=== PATIENT | male | born 1955 | race Caucasian/White ===

== ENCOUNTER 2016-04-27 11:52 | Emergency (ER) | payer OTHER ==
--- NOTE | 2016-04-27 13:17 | ED Physician Documentation ---
Chest Pain - HISTORIAN Historian: patient - HPI Stated Complaint: Left rib pain Chief Complaint: Chest Pain Additional Information: left mid axillary pain ribs, sudden onset yesterday, no trauma, no cough Onset: days ago (1) Timing: sudden onset Duration: sudden-onset Last known Well Date: 04/26/16 Last Known Well Time: 15:00 Last known Well Code/Unknown Code: Unknown Context: activity Severity: moderate Quality: sharp Front/Back of Body, Lg (Color): 1 - pain 2 - pain Chest Pain Radiation: no radiation Chest Pain Signs/Symptoms: denies: nausea, vomiting, diaphoresis, cool extremities, dizziness, dyspnea, tachypnea, tachycardia, hypotension, palpitations, weakness Worsened By: deep breaths, exertion, movement Relieved By: rest - ROS CONST: no problems MS/LYMPH: none GI/: none EYES/ENT: none SKIN/ENDO: none NEURO/PSYCH: none - PAST HX MO risk factors: hypertension, hyperlipidemia DVT/PE Risk Factors: none TAD/AAA risk factors: none Neuro deficit: none GI disease: none Lung disease: none Surgeries/Procedures: other Immunizations: referred to PCP Allergies/Adverse Reactions: Allergies Allergy/AdvReac Type Severity Reaction Status Date / Time No Known Allergies Allergy Verified 04/27/16 12:23 - SOCIAL HX Smoking History: non-smoker Alcohol Use: rarely Drug Use: none - FAMILY HX Family HX: none - VITAL SIGNS Vital Signs: Vital Signs Temp Pulse Resp BP Pulse Ox 98.3 F 78 20 174/93 96 04/27/16 12:27 04/27/16 12:27 04/27/16 12:27 04/27/16 12:27 04/27/16 12:27 - REVIEWED ASSESSMENTS Nursing Assessment Reviewed: Yes Vitals Reviewed: Yes Progress - Results/Orders Results/Orders: cxr, left ribs x-ray ordered - Progress Progress: pt. stable entire time in er Critical Care Note - Critical Care Note Total Time (mins): 0 ED Results Lab/Radiology - Lab Results Lab Results: none ordered - Radiology Radiology Impressions: cxr/left ribs shows no rib pathology, left pleural thickening/effusion - Orders Orders: ED Orders Category Date Time Status RIBS UNILATERAL W/ PA CHEST [RAD] Routine Exams 04/27/16 Ordered Chest Pain Physical Exam - EXAM General Appearance: alert, moderate distress EENT: eye inspection normal, ENT inspection normal, pharynx normal, no signs of dehydration, ANSON, no nystagmus, TM's nml Neck: nml inspection, no carotid bruit Respiratory: no resp. distress, nml breath sounds, manifests distinct pain on movement, left, other (left 7th rib tenderness intercostal area, mid axillary) CVS: reg. rate & rhythm, no murmur Abdomen: soft, no organomegaly, normal bowel sounds, no abdominal bruit, no distension, non-tender Skin: warm/dry, normal color Extremities: non-tender, normal range of motion, no evidence of injury, no edema Neuro: oriented X3, CN's nml as tested, motor nml, sensation nml, mood/affect nml, cognition normal Discharge Clincal Impression: Left-sided chest wall pain, Pleurisy with effusion Referrals: Marizol Andrade MD [Primary Care Provider] - 2 Days Comments: discharged home with script for parafon forte dsc 500 mg #20 1 p.o. qid no refill, medrol dose pack as directed, keflex 500 mg 2 p.o. bid x 7 days. Disposition: 01 HOME, SELF-CARE Decision to Admit: NO Decision Time: 13:20
[2016-04-27 13:53] VITALS: BP 162/81
--- NOTE | 2016-04-27 18:49 | Diagnostic Imaging Report ---
[facility] [address] [facility].[address] [id number] Report Submission Date: Apr 27, 2016 1:25:17 PM CDT Patient Study Name: MADONNA LUGO Date: Apr 27, 2016 12:46:59 PM CDT Modality Type: CR Gender: M Description: CHEST : 55 Institution: [facility] Physician: ANDREZ ZHENG Chest and left ribs Clinical history chest pain Technique: PA chest and standard 3 views of the left ribs Findings: There is disc or atelectasis in the left lung base. Lung rivers are otherwise clear. Cervical fusion changes are present. There is left pleural thickening. A displaced rib fracture is not identified. Impression: Left pleural thickening. Discoid atelectasis left lung base No displaced rib fractures identified. Cervical fusion Electronically signed on Apr 27, 2016 1:25:17 PM CDT by: Chris HO
== END 2016-04-27 13:51 | disposition home or self-care (01) ==
LOC: ED 11:52
DX: J90 Pleural effusion, not elsewhere classified (principal)
CPT/HCPCS: 71101; 99283

== ENCOUNTER 2017-07-18 06:55 | Outpatient (CLI) | payer OTHER ==
[2017-07-18 07:48] LABS: eGFR (African) > 60; eGFR (Non-African) > 60
== END 2017-07-18 06:56 ==
LOC: LAB 06:55
PROVIDERS: ATTEND Family Medicine
DX: E78.2 Mixed hyperlipidemia (principal)
CPT/HCPCS: 36415; 80053; 80061

== ENCOUNTER 2017-07-23 14:53 | Outpatient (CLI) | payer OTHER ==
--- NOTE | 2017-07-24 10:23 | OP Clinic Progress Note ---
REASON FOR VISIT: This 61-year-old man is seen with a right ear obstructed ear canal with cerumen. I debrided and cleaned this under the microscope in the office. The eardrum and the ear canal are otherwise normal. The left eardrum and ear canal are normal and not obstructed. PLAN: He is to return to the continued care of Dr. Marizol Andrade. cc: Dr. Marizol HO
== END 2017-07-23 14:55 ==
LOC: ENT 14:53
PROVIDERS: ATTEND Otolaryngology
DX: H61.21 Impacted cerumen, right ear (principal)
CPT/HCPCS: 69210; 99213

== ENCOUNTER 2018-10-30 08:02 | Outpatient (CLI) | payer OTHER ==
[2018-10-30 09:10] LABS: HDL 27 mg/dL (>40); eGFR (Non-African) > 60
== END 2018-10-30 08:04 ==
LOC: LAB 08:02
PROVIDERS: ATTEND Family Medicine
DX: Z12.5 Encounter for screening for malignant neoplasm of prostate (principal); E78.2 Mixed hyperlipidemia
CPT/HCPCS: 36415; 80053; 80061; 84153

== ENCOUNTER 2018-11-02 12:12 | Outpatient (CLI) | payer OTHER | END 2018-11-02 12:14 | LOC: LAB 12:12 | PROVIDERS: ATTEND Family Medicine | DX: E11.9 Type 2 diabetes mellitus without complications (principal); Z79.4 Long term (current) use of insulin | CPT/HCPCS: 36415; 83036 ==